=== PATIENT | female | born 1985 ===

== ENCOUNTER 2024-01-23 07:30 | Outpatient (CLI) | payer OTHER, SELFPAY ==
--- NOTE | ~2024-01-23 | MR_ITS ---
EXAMINATION: MR knee LT wo con DATE: 01/23/2024 08:14 INDICATION: Anterior left knee pain for 2 years. TECHNIQUE: Magnetic resonance imaging (MRI) of the left knee was performed without intravenous contra st. Sequences included axial PD-weighted FS FSE, coronal PD-weighted FSE and PD-weighted FS FSE, sagi ttal PD-weighted FSE, and sagittal T2-weighted FS FSE. COMPARISON: None. FINDINGS: Medial compartment: Medial meniscus is normal. Medial compartment cartilage is normal. Lateral compartment: Lateral meniscus is normal. Lateral compartment cartilage is normal. Patellofemoral compartment: Patellar cartilage is normal. Trochlear cartilage is normal. There are tiny osteophytes. Ligaments and tendons: The anterior and posterior cruciate ligaments are normal. Medial collateral ligament is normal. There are changes of prior sprain of the fibular collateral ligament characterized by increased signal int ensity proximally. There is mild patellar tendinopathy. Fluid: There is no knee joint effusion. There is mild prepatellar and superficial infrapatellar bursitis. Th ere is trace fluid in a Black's cyst. IMPRESSION: 1. No arthritis. Reviewed, dictated and finalized at location E. IMPRESSION: 1. No arthritis.
== END 2024-01-23 07:31 ==
PROVIDERS: PCP Orthopaedic Surgery; Visit Provider Orthopaedic Surgery
DX: M25.562 Pain in left knee (principal); G89.29 Other chronic pain
CPT/HCPCS: 73721